=== PATIENT | male | born 1985 | race African-American/Black ===

== ENCOUNTER → 2017-03-31 | Outpatient (CLI) | payer BC | LOC: LAB 10:44 | DX: R31.0 Gross hematuria (principal); R10.9 Unspecified abdominal pain; F45.8 Other somatoform disorders ==

== ENCOUNTER → 2017-06-02 | Outpatient (CLI) | payer BC | LOC: RAD 12:03 | DX: R76.11 Nonspecific reaction to tuberculin skin test without active tuberculosis (principal) ==

== ENCOUNTER → 2017-07-07 | Outpatient (CLI) | payer BC ==
[~2017-07-07] VITALS: Ht 193 cm; Wt 92.3 kg
[~2017-07-07] MED LIST: ASTELIN NASAL S34 ML NS
[2017-07-07 12:31] VITALS: BP 134/78
== END ==
LOC: AMSURD 11:58
DX: R07.89 Other chest pain (principal); J34.89 Other specified disorders of nose and nasal sinuses